=== PATIENT | female | born 1995 | race Caucasian/White ===

== ENCOUNTER → 2019-07-03 | Outpatient (CLI) | payer BC ==
--- NOTE | 2019-07-04 12:09 | XCELERA REPORT ---
[address] [place] [facility] [address] Lower Extremity Venous Evaluation Procedure: Color flow and duplex imaging of the veins of the right lower extremity as well as the left Common Femoral vein. Right Sided Venous Evaluation Normal vessel filling wall to wall, compression and augmentation as well as Colour flow down to the infrageniculate veins. Left Sided Venous Evaluation The left common femoral vein is fully compressible. Spontaneous and phasic flow is present in the left common femoral vein. Interpretation Summary No duplex evidence of DVT or obstruction in the right lower extremity nor in the left Common Femoral vein. Name: DAILY NOONAN Age: 23 yrs Gender: Female : 1995 Patient Status: Outpatient Patient Location: [facility] Study Date: 07/03/2019 05:07 PM Reason For Study: RLE PAIN Ordering Physician: RASTA WHITMAN Performed By: Marleny Zamudio : RASTA WHITMAN > Octavio Farmer
== END ==
LOC: RAD 16:16
PROVIDERS: ATTEND Nurse Practitioner Family
DX: M79.604 Pain in right leg (principal)
CPT/HCPCS: 93971

== ENCOUNTER 2019-08-11 18:53 | Emergency (ER) | payer BC ==
[2019-08-11] MEDS ORDERED: METOCLOPRAMIDE HCL INJ/PF 10 MG/2 ML SDV IV ONE (19:04)
[2019-08-11] MEDS ORDERED: NORMAL SALINE 1000 ML 1,000 ML IV PRN (19:04)
--- NOTE | 2019-08-11 19:05 | ER Document Report ---
ED Medical Screen (RME) - General Chief Complaint: Vomiting Stated Complaint: VOMITING Time Seen by Provider: 08/11/19 19:03 Primary Care Provider: JACKIEEMPLOYEE [Primary Care Provider] - Follow up as needed Notes: 24-year-old female presents with nausea/vomiting that occurred when she woke up at noon today. Patient states she took 8 mg of Zofran and then another 4 mg of Zofran with little relief. Associated epigastric pain. Abdomen soft tenderness to upper. Denies fever. I have greeted and performed a rapid initial assessment of this patient. A comprehensive ED assessment and evaluation of the patient, analysis of test results and completion of the medical decision making process with be conducted by additional ED providers. TRAVEL OUTSIDE OF THE [place] IN LAST 30 DAYS: No - Related Data Allergies/Adverse Reactions: No Known Allergies Allergy (Unverified 08/11/19 19:03) Physical Exam - Vital signs Vitals: Temp Pulse Resp BP Pulse Ox 98.5 F 123 H 16 118/77 98 08/11/19 18:56 08/11/19 18:56 08/11/19 18:56 08/11/19 18:56 08/11/19 18:56 Course - Vital Signs Vital signs: Temp Pulse Resp BP Pulse Ox 98.5 F 123 H 16 118/77 98 08/11/19 18:56 08/11/19 18:56 08/11/19 18:56 08/11/19 18:56 08/11/19 18:56 Doctor's Discharge - Discharge Referrals: HEALTHEMPLOYEE [Primary Care Provider] - Follow up as needed
--- NOTE | 2019-08-11 19:18 | ER Document Report ---
ED GI/ - General Chief Complaint: Nausea/Vomiting Stated Complaint: VOMITING Time Seen by Provider: 08/11/19 19:03 Primary Care Provider: RASTA WHITMAN FNP-C [NO LOCAL MD] - Follow up in 3-5 days Notes: Patient is a 24-year-old female who presents to the emergency department with a chief complaint of nausea and vomiting. Her symptoms started at noon today. Patient states that she attempted to take Zofran, Pepcid, and Pepto-Bismol to help with her symptoms, but has had little relief. Patient denies any past medical history. She currently has the Mirena. She is also currently on her menstrual cycle. Patient also states that she has some epigastric pain. TRAVEL OUTSIDE OF THE [place] IN LAST 30 DAYS: No - Related Data Allergies/Adverse Reactions: No Known Allergies Allergy (Unverified 08/11/19 19:03) Past Medical History - Social History Smoking Status: Never Smoker Chew tobacco use (# tins/day): No Frequency of alcohol use: None Drug Abuse: None Family History: Reviewed & Not Pertinent Patient has suicidal ideation: No Patient has homicidal ideation: No Review of Systems - Review of Systems Notes: REVIEW OF SYSTEMS: CONSTITUTIONAL : Denies recent illness. Denies recent unintentional weight loss. Denies fever, chills, or sweats. EENT: Denies eye, ear, throat, or mouth pain, discharge, or symptoms. Denies nasal or sinus congestion. CARDIOVASCULAR: Denies chest pain. RESPIRATORY: Denies shortness of breath, cough, congestion, difficulty breathing, or wheezing. GASTROINTESTINAL: See HPI. GENITOURINARY: Denies difficulty urinating, burning, blood in urine, urgency or frequency. MUSCULOSKELETAL: Denies neck and back pain. Denies joint pain or swelling. SKIN: Denies rash, itchiness, or lesions HEMATOLOGIC : Denies easy bruising or bleeding. LYMPHATIC: Denies swollen, painful, enlarged glands. NEUROLOGICAL: Denies no numbness or tingling denies weakness. Denies headache. Denies altered mental status. Denies alteration in speech. PSYCHIATRIC: Denies stress, anxiety, alteration in sleep patterns, or depress ion. All other systems reviewed and negative. Physical Exam - Vital signs Vitals: Temp Pulse Resp BP Pulse Ox 98.5 F 123 H 16 118/77 98 08/11/19 18:56 03/03/20 18:56 08/11/19 18:56 08/11/19 18:56 08/11/19 18:56 - Notes Notes: PHYSICAL EXAMINATION: GENERAL: Appears ill, no acute distress. HEAD: Normocephalic, atraumatic. EYES: PERRL, conjunctiva normal, all extraocular movements intact, sclera nonicteric ENT: Dry mucous membranes. NECK: Supple, no noticeable swelling, redness, rash. Normal range of motion. LUNGS: Equal breath sounds bilaterally and clear to auscultation. No wheezes rales or rhonchi. CARDIOVASCULAR: S1-S2, tachycardic, regular rhythm. Radial pulses 2+, normal. ABDOMEN: Normoactive bowel sounds. Soft, mildly tender epigastric area, no guarding, no rebound tenderness, and no masses palpated. EXTREMITIES: Normal strength and range of motion, no pitting or edema. No cyanosis. NEUROLOGICAL: Moves all extremities upon command. Strength 5/5 in all extremities. PSYCH: Normal mood, normal affect. SKIN: Warm, dry. No rash, lesions, ulcerations noted. Normal skin turgor. Course - Re-evaluation Re-evalutation: 08/11/19 20:45 Patient has a white blood cell count of 12,600 with a left shift. This is most likely due to her vomiting. Chemistries are unremarkable. Protein is slightly elevated, most likely due to her dehydration from vomiting. Lipase is normal. hCG is negative. Patient has protein and ketones in the urine, indicative of dehydration. Patient states that she feels better after receiving 2 L of fluid and Reglan. She was able to tolerate p.o. fluids. She will follow-up with her primary care provider. She will also be given Phenergan suppository to help with nausea and vomiting. I have very low suspicion for a bowel obstruction, mesenteric ischemia, appendicitis, or any life-threatening etiology at this time. Follow-up precautions were given. Verbal discharge instructions were given to the patient. They verbalized understanding. They are stable for discharge. - Vital Signs Vital signs: Temp Pulse Resp BP Pulse Ox 98.6 F 115 H 18 99/58 L 100 08/11/19 20:50 08/11/19 20:50 08/11/19 20:50 03/03/20 20:50 08/11/19 20:50 - Laboratory Result Diagrams: 08/11/19 19:22 08/11/19 19:22 Laboratory results interpreted by me: 08/11/19 08/11/19 08/11/19 19:22 19:22 19:40 WBC 12.6 H Seg Neuts % (Manual) 91 H Lymphocytes % (Manual) 6 L Abs Neuts (Manual) 11.5 H Creatinine 0.45 L Total Bilirubin 1.4 H Total Protein 8.6 H Urine Protein 30 H Urine Ketones TRACE H Discharge - Discharge Clinical Impression: Dehydration Nausea and vomiting Qualifiers: Vomiting type: unspecified Vomiting Intractability: unspecified Qualified Code(s): R11.2 - Nausea with vomiting, unspecified Condition: Stable Disposition: HOME, SELF-CARE Additional Instructions: You are seen today in the emergency department for nausea and vomiting. You were very dehydrated. You received IV fluids here in the emergency department. You are being sent home with Phenergan suppositories to help with nausea and v omiting. Please follow-up with your primary care provider. Hope you feel better. <3 Prescriptions: Promethazine HCl [Phenergan 25 mg Supp.rect] 1 supp MT Q6H #12 supp.rect Forms: Return to Work Referrals: RASTA WHITMAN, [facility] [NO LOCAL MD] - Follow up in 3-5 days
[2019-08-11 19:38] LABS: HEMATOCRIT 40.7 % (36.0-47.0); HEMOGLOBIN 13.8 g/dL (12.0-15.5); MEAN CORPUSCULAR HEMOGLOBIN 29.6 pg (27.0-33.4); MEAN CORPUSCULAR HGB CONC 33.8 g/dL (32.0-36.0); MEAN CORPUSCULAR VOLUME 87 fl (80-97); PLATELET COUNT 300 10^3/uL (150-450); RED BLOOD COUNT 4.65 10^6/uL (3.72-5.28); RED CELL DISTRIBUTION WIDTH 13.1 % (11.5-14.0); WHITE BLOOD COUNT 12.6 10^3/uL (4.0-10.5)
[2019-08-11 19:59] LABS: ALKALINE PHOSPHATASE 66 U/L (38-126); ANION GAP 14 (5-19); ASPARTATE AMINO TRANSFERASE 26 U/L (14-36); BILIRUBIN,DIRECT 0.1 mg/dL (0.0-0.4); BILIRUBIN,TOTAL 1.4 mg/dL (0.2-1.3); BLOOD UREA NITROGEN 18 mg/dL (7-20); CARBON DIOXIDE 24 mmol/L (22-30); CHLORIDE 101 mmol/L (98-107); GLUCOSE 107 mg/dL (75-110); POTASSIUM 4.1 mmol/L (3.6-5.0); TOTAL PROTEIN 8.6 g/dL (6.3-8.2)
[2019-08-11 20:01] LABS: ABSOLUTE LYMPHOCYTES# (MANUAL) 0.8 10^3/uL (0.5-4.7); ABSOLUTE MONOCYTES # (MANUAL) 0.4 10^3/uL (0.1-1.4); BASOPHILS % (MANUAL) 0 % (0-2); EOSINOPHILS % (MANUAL) 0 % (0-6); LYMPHOCYTES % (MANUAL) 6 % (13-45); MONOCYTES % (MANUAL) 3 % (3-13); SEGMENTED NEUTROPHILS % (MAN) 91 % (42-78); TOTAL CELLS COUNTED 100
[2019-08-11 20:02] LABS: PLATELET CLUMPS PRESENT; PLATELET COMMENT ADEQUATE
[2019-08-11 20:13] LABS: APPEARANCE,URINE CLEAR; BILIRUBIN,URINE NEGATIVE (NEGATIVE); COLOR,URINE YELLOW; GLUCOSE, URINE NEGATIVE (NEGATIVE); KETONES,URINE TRACE mg/dL (NEGATIVE); PROTEIN,URINE 30 mg/dL (NEGATIVE); UROBILINOGEN,URINE NEGATIVE mg/dL (<2.0)
[2019-08-11 20:54] VITALS: BP 99/58
== END 2019-08-11 20:56 | disposition home or self-care (01) ==
LOC: ER 18:53
DX: E86.0 Dehydration (principal); R11.2 Nausea with vomiting, unspecified; R10.13 Epigastric pain; Z97.5 Presence of (intrauterine) contraceptive device
CPT/HCPCS: 99284; 96361; 96374; 36415; 83690; 84703; 85025; 80053; 81001; J2765; J7030